=== PATIENT | female | born 1960 | race Caucasian/White ===

== ENCOUNTER 2020-09-12 10:26 | Inpatient (IN) | payer BC ==
[2020-09-12] MEDS ORDERED: Dexamethasone 10 MG/ML VIAL ONE (11:06)
[2020-09-12] MEDS ORDERED: Azithromycin 500 MG VIAL ONE (11:06)
[2020-09-12] MEDS ORDERED: Aspirin Chewable 81 MG TAB ONE (11:06)
[2020-09-12] MEDS ORDERED: cefTRIAXone\\ROCEPHIN 2 GM VIAL ONE (11:06)
[2020-09-12 11:11] LABS: #Lymphocytes 1.7 thou/uL (1.20-3.40); #Monocytes 0.7 thou/uL (0.11-0.59); #Neutrophils 6.2 thou/uL (1.40-6.50); %Basophils 0.4 % (0.0-1.0); %Eosinophils 0.2 % (0.0-10.0); %Lymphocytes 19.1 % (21.0-51.0); %Monocytes 8.3 % (0.0-10.0); %Neutrophils 72.1 % (42.0-75.0); Hemoglobin 15.6 g/dL (12.0-16.0); Mean Corpuscular Hemoglobin 29.8 pg (27.0-31.0); Mean Platelet Volume 8.4 fL (7.4-10.4); Platelet Count 180 thou/uL (130-400); RBC Distribution Width 11.4 % (11.5-14.5); Red Blood Cell (RBC) Count 5.25 mill/uL (4.20-5.40); White Blood Cell (WBC) Count 8.7 thou/uL (4.8-10.8)
[2020-09-12] MEDS ORDERED: Iopamidol-370 76% 500 ML 1 ML ONE (11:18)
--- NOTE | 2020-09-12 11:24 | RAD ---
Chest one view HISTORY: Pneumonia. COMPARISON: 11/13/2016. FINDINGS: Cardiac silhouette is magnified by projection. Pulmonary vasculature accentuated by shallow inspiration. Mediastinum is midline. Subtle ill-defined peripheral patchy areas of groundglass opacity involve each lung base. Upper lobes are clear. No lobar consolidation or evidence of pneumothorax. IMPRESSION : Multifocal infiltrate as often seen with COVID pneumonitis.
[2020-09-12 11:34] LABS: Calcium 8.6 mg/dL (7.8-10.44); Chloride 99 mmol/L (98-107); Sodium 139 mmol/L (136-145)
[2020-09-12 11:36] LABS: Glucose 166 mg/dL (70-105)
[2020-09-12 11:37] LABS: Bilirubin, Total 0.6 mg/dL (0.2-1.2); Protein, Total 7.2 g/dL (6.0-8.3)
[2020-09-12 11:38] LABS: Anion Gap 18 mmol/L (10-20); Carbon Dioxide 26 mmol/L (22-29)
[2020-09-12 11:39] LABS: Alkaline Phosphatase 55 U/L (40-110)
[2020-09-12 11:40] LABS: AST (SGOT) 23 U/L (5-34); Calc. Creatinine Clearance 0 mL/min (70-130)
[2020-09-12 11:41] LABS: BUN (Urea Nitrogen) 5 mg/dL (9.8-20.1)
[2020-09-12 11:42] LABS: ALT (SGPT) 15 U/L (8-55)
[2020-09-12 11:56] LABS: Bilirubin Negative (Negative); Blood, Urine Negative (Negative); Clarity Clear (Clear); Glucose, Urine (Dipstick) Normal (Negative); Ketone, Urine 40 mg/dL (Negative); Leukocyte Negative Leu/uL (Negative); Nitrite Negative (Negative); Protein, Urine (Dipstick) 50 mg/dL (Neg-Trace); RBC/HPF 0-3 HPF (0-3); Specific Gravity, Urine 1.026 (1.002-1.036); Urobilinogen 3 mg/dL (Less than 2)
[2020-09-12 11:57] LABS: Bacteria/HPF 1+ HPF (None Seen)
[2020-09-12] MEDS ORDERED: Dextrose 50% Abboject 50 ML SYRINGE SLOW IVP PRN (12:18)
[2020-09-12] MEDS ORDERED: Dextrose 5% in Water 1,000 ML IV PRN (12:18)
[2020-09-12] MEDS ORDERED: Acetaminophen 325 MG TAB PO PRN (12:19)
[2020-09-12] MEDS ORDERED: Calcium Carbonate 500 MG ChewTAB PO PRN (12:19)
[2020-09-12] MEDS ORDERED: Ondansetron ODT 4 MG TAB PO PRN (12:19)
[2020-09-12] MEDS ORDERED: Ondansetron PF 4 MG/2 ML Vial IVP PRN (12:19)
[2020-09-12 12:34] LABS: PTT 32.7 sec (22.9-36.1)
[2020-09-12 12:35] LABS: D-Dimer Test 0.32 *mcg/mL (0.27-0.43)
[2020-09-12 12:39] LABS: Albumin 3.5 g/dL (3.5-5.0); Globulin 3.7 g/dL (2.4-3.5)
[2020-09-12] MEDS ORDERED: Polyethylene Glycol 3350 17 GM Packet PO PRN (12:42)
[2020-09-12 12:48] LABS: Phosphorus 2.7 mg/dL (2.3-4.7)
--- NOTE | 2020-09-12 12:57 | PDOC.HHP ---
Hospitalist HPI - History of Present Illness Shortness of breath of 2 weeks duration History of Present Illness: Ms. Mccormick is a 59-year-old female with hypertension, diabetes mellitus type 2 and seasonal allergies presented to the emergency room with above complaints. Over the last 2 weeks patient developed gradual worsening shortness of breath along with low-grade fever, some some chest pressure, generalized weakness and coughing. The cough was mildly productive with thick whitish phlegm. She was short of breath on minimal exertion. At times she was short of breath at rest. She has been monitoring her pulse ox on the daily basis. Earlier today her pulse ox was in the 80s for which she decided to come to the emergency room. Over the last 3 days she also has some nausea with on and off mild diarrhea. She had fever over 101 F with intermittent chills. She cannot recall any sick contacts. No recent immobilization, travel, chest pain, palpitations or syncope reported. She was diagnosed with Covid-19 11 days ago. In the emergency room her initial vital signs showed temperature 101.1 with respiration of 23, pulse rate of 98 and blood pressure of 127/67. Her O2 saturation was 90% on room air. She was started on supplemental oxygen. She received ceftriaxone, dexamethasone, azithromycin, aspirin with IV fluid in the emergency room. PAST MEDICAL HISTORY: Hypertension, hyperlipidemia, diabetes mellitus type 2, osteoporosis, seasonal allergies PAST SURGICAL HISTORY: Right knee replacement, right foot surgery, cholecystectomy, hysterectomy, ALLERGIES: No known drug allergies SOCIAL HISTORY: Currently lives at home with her who is the primary decision maker ([phone]). She denies any smoking, alcohol or drug use. FAMILY HISTORY: Mother had ovarian cancer. Father with hypertension and heart disease. Hospitalist ROS - Review of Systems Constitutional: reports: fever, chills, weakness. denies: sweats, malaise, other Cardiovascular: denies: chest pain, palpitations, orthopnea, paroxysmal noc. dyspnea, edema, light headedness, other Genitourinary: denies: dysuria, frequency, incontinence, hematuria, retention, other All other systems reviewed; all pertinent +/- noted in HPI/Subj - Medication Medications: Medication Instructions Recorded Confirmed Type Acetaminophen [Tylenol Extra 1,000 mg PO DAILY 09/12/20 09/12/20 History Strength] Amlodipine [Norvasc] 10 mg PO DAILY 09/12/20 09/12/20 History Cholecalciferol (Vitamin D3) 1 cap PO DAILY 09/12/20 09/12/20 History [Vitamin D3] Irbesartan [Avapro] 150 mg PO DAILY 09/12/20 09/12/20 History Montelukast Sodium [Singulair] 10 mg PO DAILY 09/12/20 09/12/20 History Nystatin [Nystatin Ointment] 1 applic TOP BID PRN 09/12/20 09/12/20 History Pantoprazole [Protonix] 40 mg PO HS 09/12/20 09/12/20 History Raloxifene HCl [Evista] 60 mg PO HS 09/12/20 09/12/20 History Rosuvastatin [Crestor] 20 mg PO DAILY 09/12/20 09/12/20 History Vit C/E/Zn/Coppr/Lutein/Zeaxan 1 capsule PO BID 09/12/20 09/12/20 History [PreserVision Areds 2 Softgel] metFORMIN [Glucophage] 500 mg PO BID-WM 09/12/20 09/12/20 History - Exam General Appearance: ill appearing General - other findings: In mild respiratory distress Eye: PERRL, anicteric sclera ENT: normocephalic atraumatic, no oropharyngeal lesions, moist mucosa Neck: supple, symmetric, no JVD, no thyromegaly Heart: RRR, no gallops, no rubs, normal peripheral pulses Respiratory: no wheezes, rales, rhonchi, tachypneic Gastrointestinal: soft, non-distended, normal bowel sounds, no guarding, no rigidity Extremities: no cyanosis, no clubbing Skin: normal turgor, no lesions Neurological: cranial nerve grossly intact, normal sensation to touch, no weakness, no focal deficits Musculoskeletal: normal tone, normal strength, no muscle wasting Psychiatric: normal affect, A&O x 3 Hospitalist Results - Labs Result Diagrams: 09/12/20 10:57 09/12/20 10:57 Lab results: WBC 8.7 thou/uL (4.8-10.8) 09/12/20 10:57 Hgb 15.6 g/dL (12.0-16.0) 09/12/20 10:57 Hct 47.3 % (36.0-47.0) H 09/12/20 10:57 MCV 90.0 fL (78.0-98.0) 09/12/20 10:57 Plt Count 180 thou/uL (130-400) 09/12/20 10:57 Neutrophils % 72.1 % (42.0-75.0) 09/12/20 10:57 Sodium 139 mmol/L (136-145) 09/12/20 10:57 Potassium 4.0 mmol/L (3.5-5.1) 09/12/20 10:57 Chloride 99 mmol/L (98-107) 09/12/20 10:57 Carbon Dioxide 26 mmol/L (22-29) 09/12/20 10:57 BUN 5 mg/dL (9.8-20.1) L 09/12/20 10:57 Creatinine 0.72 mg/dL (0.6-1.1) 09/12/20 10:57 Glucose 166 mg/dL (70-105) H 09/12/20 10:57 Lactic Acid 2.2 mmol/L (0.5-2.2) 09/12/20 10:57 Calcium 8.6 mg/dL (7.8-10.44) 09/12/20 10:57 Total Bilirubin 0.6 mg/dL (0.2-1.2) 09/12/20 10:57 AST 23 U/L (5-34) 09/12/20 10:57 ALT 15 U/L (8-55) 09/12/20 10:57 Alkaline Phosphatase 55 U/L (40-110) 09/12/20 10:57 Troponin I Less than 0.010 ng/mL (< 0.028) 09/12/20 10:57 C-Reactive Protein 4.17 mg/dL (= or < 0.5) H 09/12/20 10:57 Serum Total Protein 7.2 g/dL (6.0-8.3) 09/12/20 10:57 Albumin 3.5 g/dL (3.5-5.0) 09/12/20 10:57 Urine Ketones 40 mg/dL (Negative) A 09/12/20 10:40 Urine Blood Negative (Negative) 09/12/20 10:40 Urine Nitrite Negative (Negative) 09/12/20 10:40 Ur Leukocyte Esterase Negative Bev/uL (Negative) 09/12/20 10:40 Urine RBC 0-3 HPF (0-3) 09/12/20 10:40 Urine WBC 11-20 HPF (0-3) A 09/12/20 10:40 Ur Squamous Epith Cells 4-6 HPF (0-3) A 09/12/20 10:40 Urine Bacteria 1+ HPF (None Seen) A 09/12/20 10:40 - EKG Interpretation EKG: Sinus rhythm with left ventricular hypertrophy and left anterior fascicular blockReviewed by me - Radiology Interpretation Chest x-ray Status: image reviewed by me Additional Comment: Multifocal pneumonia consistent with COVID-19 Hospitalist H&P A/P - Plan Plan: Acute hypoxic respiratory failure due to COVID-19 pneumonia Suspected UTI Atypical chest pain with abnormal EKG Diabetes mellitus type 2 Hypertension Hyperlipidemia Seasonal allergies Dehydration Elevated inflammatory markers CKD stage II Morbid obesity with a BMI 41.5 Plan: Patient will be monitored in the telemetry unit. Serial troponins have been ordered. O2 supplementation. Dexamethasone 6 mg daily. I discussed with infectious disease Dr. Montoya who recommended remdesivir. Insulin sliding scale. Patient received IV fluids in the emergency room. Diabetic diet. Vitals every 4 hourly. Monitor pulse ox closely. Monitor inflammatory markers on the daily basis. Empiric ceftriaxone for UTI. Urine cultures have been sent. Plan of care was discussed with the patient and the who stated understanding. Patient will require greater than 3 to 4 days for stabilization.
--- NOTE | 2020-09-12 13:08 | CT ---
EXAM: CT pulmonary angiogram with IV contrast and three-dimensional reconstructions PROVIDED CLINICAL HISTORY: Cough COMPARISON: None FINDINGS: There is no evidence for central or segmental pulmonary embolus. Vascular calcification including cor onary calcium is demonstrated. The heart, pericardium and great vessels appear otherwise unremarkable. There is no evidence for thoracic lymph node enlargement. The airway appears patent and of normal jose iber. No pleural fluid or pneumothorax apparent. There are patchy areas of groundglass opacity and associated interstitial thickening involving the kenia ng parenchyma bilaterally. The visualized portions of the upper abdomen demonstrate no acute abnormality. Fatty infiltration of the liver and post cholecystectomy change are seen. The osseous structures demonstrate no concerning lytic or blastic lesions. IMPRESSION: 1. No evidence for central or segmental pulmonary embolus. 2. Pulmonary parenchymal findings typical but not specific for Covid pneumonia.
[2020-09-12 13:23] LABS: Troponin I Less than 0.010 ng/mL (< 0.028)
[2020-09-12 15:00] LABS: Lactic Acid 1.6 mmol/L (0.5-2.2)
[2020-09-12] MEDS ORDERED: Albuterol 200 PUFF (6.7GM INHALER) INH PRN (15:45)
[2020-09-12 16:49] LABS: Troponin I Less than 0.010 ng/mL (< 0.028)
[2020-09-12 17:52] VITALS: BMI 41.5
[2020-09-12] MEDS ORDERED: REMDESIVIR (EUA) 200 MG in Sodium Chloride 0.9% 250 ML 210 ML IV SCH (18:00)
[2020-09-12] MEDS: Insulin Regular 300 UNITS/3 ML VIAL SC PRN (18:20)
[2020-09-12] MEDS ORDERED: Nystatin Ointment 15 GM TUBE TOP PRN (19:36)
[2020-09-12] MEDS: Senokot S 8.6-50 MG TAB PO SCH (19:53)
[2020-09-12] MEDS: Enoxaparin Sodium 40 MG/0.4 ML SYRINGE SC SCH (19:53)
[2020-09-12] MEDS ORDERED: Famotidine 20 MG TAB PO SCH (21:00)
[2020-09-12] MEDS: Albuterol 200 PUFF (6.7GM INHALER) INH SCH ×2 (22:11→22:12)
[2020-09-13] MEDS: Albuterol 200 PUFF (6.7GM INHALER) INH SCH ×6 (02:58→22:54)
[2020-09-13 05:15] LABS: #Monocytes 0.5 thou/uL (0.11-0.59); #Neutrophils 3.5 thou/uL (1.40-6.50); %Lymphocytes 20.4 % (21.0-51.0); %Monocytes 10.3 % (0.0-10.0); %Neutrophils 69.2 % (42.0-75.0); Hemoglobin 13.1 g/dL (12.0-16.0); Mean Corpuscular HGB CONC 32.4 g/dL (32.0-36.0); Mean Corpuscular Hemoglobin 28.9 pg (27.0-31.0); Mean Corpuscular Volume 89.3 fL (78.0-98.0); Mean Platelet Volume 8.2 fL (7.4-10.4); Platelet Count 205 thou/uL (130-400); RBC Distribution Width 11.1 % (11.5-14.5); Red Blood Cell (RBC) Count 4.52 mill/uL (4.20-5.40)
[2020-09-13 06:07] LABS: ALT (SGPT) 11 U/L (8-55); AST (SGOT) 16 U/L (5-34); Albumin 2.9 g/dL (3.5-5.0); Alkaline Phosphatase 42 U/L (40-110); Anion Gap 14 mmol/L (10-20); BUN (Urea Nitrogen) 6 mg/dL (9.8-20.1); Bilirubin, Total 0.3 mg/dL (0.2-1.2); Calc. Creatinine Clearance 147 mL/min (70-130); Calcium 8.1 mg/dL (7.8-10.44); Carbon Dioxide 27 mmol/L (22-29); Chloride 104 mmol/L (98-107); Globulin 3.2 g/dL (2.4-3.5); Glucose 147 mg/dL (70-105); Magnesium 2.2 mg/dL (1.6-2.6); Phosphorus 2.7 mg/dL (2.3-4.7); Potassium 3.5 mmol/L (3.5-5.1); Protein, Total 6.1 g/dL (6.0-8.3); Sodium 141 mmol/L (136-145)
[2020-09-13] MEDS ORDERED: Amlodipine 10 MG TAB PO SCH (09:00)
[2020-09-13] MEDS: Cholecalciferol 1,000 UNITS (25 MCG) TAB PO SCH (09:23)
[2020-09-13] MEDS: Enoxaparin Sodium 40 MG/0.4 ML SYRINGE SC SCH ×2 (09:24→20:14)
[2020-09-13] MEDS: Losartan 25 MG TAB PO SCH (09:24)
[2020-09-13] MEDS: Dexamethasone 4 mg/ml Vial SLOW IVP SCH (09:25)
[2020-09-13] MEDS: Benzonatate 100 MG CAP PO PRN ×2 (09:25→18:24)
[2020-09-13] MEDS: Multivit, Therapeutic 1 TAB PO SCH (09:25)
[2020-09-13] MEDS: Montelukast Sodium 10 mg Tablet PO SCH (09:25)
[2020-09-13] MEDS: Rosuvastatin 20 MG TAB PO SCH (09:25)
[2020-09-13] MEDS ORDERED: Insulin Glargine 15 UNITS in Pre-Filled Syringe 1 EACH SC SCH (12:00)
[2020-09-13] MEDS: Insulin Regular 300 UNITS/3 ML VIAL SC PRN ×3 (12:25→20:38)
[2020-09-13] MEDS: cefTRIAXone\\ROCEPHIN 1 GM in Sodium Chloride 0.9% 100 ML IVPB SCH (12:26)
[2020-09-13] MEDS: Senokot S 8.6-50 MG TAB PO SCH ×2 (12:52→20:14)
--- NOTE | 2020-09-13 13:48 | PDOC.HOSPP ---
- Subjective Encounter Date: 09/13/20 Encounter Time: 13:30 Subjective: Patient seen and examined for respiratory failure due to COVID-19 pneumonia. Shortness of breath slightly better. Some cough with minimal production. Denies any chest pain, palpitations, nausea, vomiting or diarrhea. - Objective Vital Signs & Weight: Vital Signs (12 hours) Temp Pulse Resp BP Pulse Ox 09/13/20 11:50 99.1 F 83 18 119/63 97 09/13/20 07:39 98.6 F 78 20 127/68 96 09/13/20 02:56 98.7 F 74 18 104/59 L 98 Weight Weight 219 lb 9.6 oz I&O: 09/12/20 09/13/20 09/14/20 06:59 06:59 06:59 Intake Total 470 Output Total 550 650 Balance -80 -650 Result Diagrams: 09/13/20 04:49 09/13/20 04:49 Additional Labs: Accuchecks 09/13/20 09/12/20 09/12/20 10:57 21:36 17:39 POC Glucose 242 H 264 H 209 H Abnormal Lab Results - Last 48 hrs 09/12/20 10:40: Urine Protein 50 A, Urine Ketones 40 A, Urine Urobilinogen 3 A, Urine WBC 11-20 A, Ur Squamous Epith Cells 4-6 A, Urine Bacteria 1+ A, Hyaline Casts 7-10 A 09/12/20 10:57: BUN 5 L, Globulin 3.7 H, Albumin/Globulin Ratio 0.9 L 09/12/20 10:57: Hct 47.3 H, RDW 11.4 L, Lymphocytes % 19.1 L, Monocytes # 0.7 H 09/12/20 10:57: C-Reactive Protein 4.17 H 09/12/20 10:57: Ferritin 1280.32 H 09/13/20 04:49: BUN 6 L, Albumin 2.9 L, Albumin/Globulin Ratio 0.9 L 09/13/20 04:49: RDW 11.1 L, Lymphocytes % 20.4 L, Monocytes % 10.3 H, Lymphocytes # 1.0 L 09/13/20 04:49: C-Reactive Protein 2.18 H 09/13/20 04:50: Ferritin 791.01 H Microbiology - Entire Visit 09/12/20 10:40 Urine voided Urine Culture - Preliminary Gram Negative Chetan 09/12/20 11:03 Venous blood - Right Arm Blood Culture - Preliminary Specimen has been received and culture in progress. No Growth to date. 09/12/20 10:57 Venous blood - Left Arm Blood Culture - Preliminary Specimen has been received and culture in progress. No Growth to date. Radiology Reviewed by me: Yes (Chest x-raymultifocal pneumonia) EKG Reviewed by me: Yes (Sinus rhythm on telemetry) Hospitalist ROS - Review of Systems Cardiovascular: denies: chest pain, palpitations, orthopnea, paroxysmal noc. dyspnea, edema, light headedness, other Gastrointestinal: denies: nausea, vomiting, abdominal pain, diarrhea, constipation, melena, hematochezia, other - Medication Medications: Active Medications Generic Name Dose Route Start Last Admin Trade Name Freq PRN Reason Stop Dose Admin Albuterol Sulfate 2 puff 09/12/20 18:30 09/13/20 09:22 Albuterol 200 Puff (6.7gm Inhaler) INH 2 puff [id number] YUAN Administration Benzonatate 100 mg 09/13/20 08:11 09/13/20 09:25 Benzonatate 100 Mg Cap PO 100 mg TIDPRN PRN Administration Cough Cholecalciferol 5,000 units 09/13/20 09:00 09/13/20 09:23 Cholecalciferol 1,000 Units (25 Mcg) Tab PO 5,000 units DAILY YUAN Administration Dexamethasone 6 mg 09/13/20 09:00 09/13/20 09:25 Dexamethasone 4 Mg/Ml Vial SLOW IVP 6 mg DAILY YUAN Administration Enoxaparin Sodium 40 mg 09/12/20 21:00 09/13/20 09:24 Enoxaparin Sodium 40 Mg/0.4 Ml Syringe SC 40 mg 0900,2100 YUAN Administration Ceftriaxone Sodium 1 gm/ 100 mls @ 200 mls/hr 09/13/20 12:00 09/13/20 12:26 Sodium Chloride IVPB 100 mls Q24HR YUAN Administration Insulin Glargine 15 units/ 0.15 mls @ 0 mls/hr 09/13/20 12:00 09/13/20 12:27 Miscellaneous Medication SC 09/13/20 14:00 0.15 mls NOW YUAN Administration Insulin Human Regular 0 units 09/12/20 12:18 09/13/20 12:25 Insulin Regular 300 Units/3 Ml Vial SC 4 unit .MODERATE SLIDING SC PRN Administration Moderate Correctional Scale Losartan Potassium 50 mg 09/13/20 09:00 09/13/20 09:24 Losartan 25 Mg Tab PO 50 mg DAILY YUAN Administration Montelukast Sodium 10 mg 09/13/20 09:00 09/13/20 09:25 Montelukast Sodium 10 Mg Tablet PO 10 mg DAILY YUAN Administration Multivitamins 1 tab 09/13/20 09:00 09/13/20 09:25 Multivit, Therapeutic 1 Tab PO 1 tab DAILY YUAN Administration Pantoprazole Sodium 40 mg 09/13/20 09:00 09/13/20 09:25 Pantoprazole 40 Mg Tab PO 40 mg DAILY YUAN Administration Rosuvastatin Calcium 20 mg 09/13/20 09:00 09/13/20 09:25 Rosuvastatin 20 Mg Tab PO 20 mg DAILY YUAN Administration Senna/Docusate Sodium 1 tab 09/12/20 21:00 09/13/20 12:52 Senokot S 8.6-50 Mg Tab PO Not Given BID YUAN Sodium Chloride 10 ml 09/12/20 12:19 09/13/20 09:26 Flush - Normal Saline 10 Ml Syringe IVF 10 ml PRN PRN Administration Saline Flush - Exam General Appearance: ill appearing Eye: PERRL, anicteric sclera Heart: RRR, no gallops, no rubs, normal peripheral pulses Respiratory: no wheezes, normal chest expansion, rales, rhonchi Gastrointestinal: soft, non-tender, normal bowel sounds, no guarding, no rigidity Extremities: no cyanosis, no clubbing, no edema Extremities - other findings: No calf tenderness Neurological: no new deficit Psychiatric: normal affect, A&O x 3 Hosp A/P - Plan DVT proph w/lovenox, DVT proph w/SCDs Acute hypoxic respiratory failure due to COVID-19 pneumonia Suspected UTI Atypical chest pain with abnormal EKG Diabetes mellitus type 2 Hypertension Hyperlipidemia Seasonal allergies Dehydration Elevated inflammatory markers CKD stage II Morbid obesity with a BMI 41.5 Plan: Continue dexamethasone 6 mg daily. Continue remdesivirday 2. Change amlodipine to 5 mg twice daily from tomorrow. Continue losartan. Add Lantus for hyperglycemia due to steroids. Continue sliding scale AC and at bedtime. Monitor inflammatory markers closely. Continue other medications as above.
[2020-09-13] MEDS: REMDESIVIR (EUA) 100 MG in Sodium Chloride 0.9% 250 ML 230 ML IV SCH (18:23)
[2020-09-13] MEDS: Diabetic Tussin 200 MG/10 ML UDCUP PO PRN (20:14)
[2020-09-13] MEDS: Zinc Sulfate 220 MG CAP PO SCH (20:14)
[2020-09-14] MEDS: Albuterol 200 PUFF (6.7GM INHALER) INH SCH ×6 (02:21→21:24)
[2020-09-14] MEDS: Diabetic Tussin 200 MG/10 ML UDCUP PO PRN ×4 (02:22→14:42)
[2020-09-14 05:19] LABS: #Lymphocytes 1.6 thou/uL (1.20-3.40); #Monocytes 0.8 thou/uL (0.11-0.59); #Neutrophils 4.3 thou/uL (1.40-6.50); %Basophils 0.1 % (0.0-1.0); %Eosinophils 0.2 % (0.0-10.0); %Monocytes 11.8 % (0.0-10.0); %Neutrophils 63.9 % (42.0-75.0); Hemoglobin 12.9 g/dL (12.0-16.0); Mean Corpuscular HGB CONC 32.3 g/dL (32.0-36.0); Mean Corpuscular Hemoglobin 28.7 pg (27.0-31.0); Mean Platelet Volume 8.2 fL (7.4-10.4); Platelet Count 212 thou/uL (130-400); RBC Distribution Width 11.4 % (11.5-14.5); White Blood Cell (WBC) Count 6.8 thou/uL (4.8-10.8)
[2020-09-14 05:42] LABS: ALT (SGPT) 9 U/L (8-55); AST (SGOT) 13 U/L (5-34); Alkaline Phosphatase 43 U/L (40-110); Anion Gap 13 mmol/L (10-20); BUN (Urea Nitrogen) 9 mg/dL (9.8-20.1); Bilirubin, Total 0.3 mg/dL (0.2-1.2); Calc. Creatinine Clearance 145 mL/min (70-130); Calcium 8.4 mg/dL (7.8-10.44); Carbon Dioxide 28 mmol/L (22-29); Chloride 105 mmol/L (98-107); Globulin 3.2 g/dL (2.4-3.5); Glucose 138 mg/dL (70-105); Potassium 3.9 mmol/L (3.5-5.1); Protein, Total 6.2 g/dL (6.0-8.3); Sodium 142 mmol/L (136-145)
[2020-09-14] MEDS: Cholecalciferol 1,000 UNITS (25 MCG) TAB PO SCH (08:43)
[2020-09-14] MEDS: Ascorbic Acid 500 mg Chewable Tablet PO SCH (08:43)
[2020-09-14] MEDS: Amlodipine 5 MG TAB PO SCH ×3 (08:43→21:00)
[2020-09-14] MEDS: Montelukast Sodium 10 mg Tablet PO SCH (08:44)
[2020-09-14] MEDS: Dexamethasone 4 mg/ml Vial SLOW IVP SCH (08:44)
[2020-09-14] MEDS: Losartan 25 MG TAB PO SCH (08:44)
[2020-09-14] MEDS: Enoxaparin Sodium 40 MG/0.4 ML SYRINGE SC SCH ×2 (08:44→21:00)
[2020-09-14] MEDS: Senokot S 8.6-50 MG TAB PO SCH ×2 (08:45→21:00)
[2020-09-14] MEDS: Rosuvastatin 20 MG TAB PO SCH (08:45)
[2020-09-14] MEDS: Multivit, Therapeutic 1 TAB PO SCH (08:45)
[2020-09-14] MEDS ORDERED: Insulin Glargine 15 UNITS in Pre-Filled Syringe 1 EACH SC SCH (09:00)
--- NOTE | 2020-09-14 10:49 | PDOC.HOSPP ---
- Subjective Encounter Date: 09/14/20 Encounter Time: 10:30 Subjective: Patient seen and examined for respiratory failure/COVID-19 pneumonia. Complains of intractable cough with minimal production. Shortness of breath unchanged. Denies any chest pain, palpitations, nausea, vomiting or diarrhea. - Objective Vital Signs & Weight: Vital Signs (12 hours) Temp Pulse Resp BP Pulse Ox 09/14/20 09:00 98.4 F 83 22 H 111/62 95 09/14/20 02:19 94 L 09/14/20 02:12 97.8 F 78 22 H 123/76 93 L 09/13/20 23:00 98.6 F 78 18 120/71 94 L Weight Weight 219 lb 9.6 oz I&O: 09/13/20 09/14/20 09/15/20 06:59 06:59 06:59 Intake Total 470 3260 240 Output Total 550 3200 Balance -80 60 240 Result Diagrams: 09/14/20 04:37 09/14/20 04:37 Additional Labs: Accuchecks 09/13/20 09/13/20 09/13/20 20:20 16:55 10:57 POC Glucose 310 H 252 H 242 H Abnormal Lab Results - Last 48 hrs 09/12/20 10:40: Urine Protein 50 A, Urine Ketones 40 A, Urine Urobilinogen 3 A, Urine WBC 11-20 A, Ur Squamous Epith Cells 4-6 A, Urine Bacteria 1+ A, Hyaline Casts 7-10 A 09/12/20 10:57: BUN 5 L, Globulin 3.7 H, Albumin/Globulin Ratio 0.9 L 09/12/20 10:57: Hct 47.3 H, RDW 11.4 L, Lymphocytes % 19.1 L, Monocytes # 0.7 H 09/12/20 10:57: C-Reactive Protein 4.17 H 09/12/20 10:57: Ferritin 1280.32 H 09/13/20 04:49: BUN 6 L, Albumin 2.9 L, Albumin/Globulin Ratio 0.9 L 09/13/20 04:49: RDW 11.1 L, Lymphocytes % 20.4 L, Monocytes % 10.3 H, Lymphocytes # 1.0 L 09/13/20 04:49: C-Reactive Protein 2.18 H 09/13/20 04:50: Ferritin 791.01 H 09/14/20 04:37: BUN 9 L, Albumin 3.0 L, Albumin/Globulin Ratio 0.9 L 09/14/20 04:37: RDW 11.4 L, Monocytes % 11.8 H, Monocytes # 0.8 H 09/14/20 04:37: C-Reactive Protein 0.94 H 09/14/20 04:37: Ferritin 580.82 H 09/14/20 04:37: D-Dimer Less than 0.27 L Microbiology - Entire Visit 09/12/20 10:40 Urine voided Urine Culture - Final Escherichia coli 09/12/20 11:03 Venous blood - Right Arm Blood Culture - Preliminary Specimen has been received and culture in progress. No Growth to date. 09/12/20 10:57 Venous blood - Left Arm Blood Culture - Preliminary Specimen has been received and culture in progress. No Growth to date. EKG Reviewed by me: Yes (Sinus rhythm on telemetry) Hospitalist ROS - Review of Systems Respiratory: reports: cough, dry, shortness of breath, SOB with excertion. denies: hemoptysis, pleuritic pain, sputum, wheezing, other Cardiovascular: denies: chest pain, palpitations, orthopnea, paroxysmal noc. dyspnea, edema, light headedness, other Gastrointestinal: denies: nausea, vomiting, abdominal pain, diarrhea, constipation, melena, hematochezia, other - Medication Medications: Active Medications Generic Name Dose Route Start Last Admin Trade Name Freq PRN Reason Stop Dose Admin Albuterol Sulfate 2 puff 09/12/20 18:30 09/14/20 10:07 Albuterol 200 Puff (6.7gm Inhaler) INH 2 puff [id number] YUAN Administration Amlodipine Besylate 5 mg 09/14/20 09:00 09/14/20 09:07 Amlodipine 5 Mg Tab PO Not Given BID YUAN Ascorbic Acid 1,000 mg 09/14/20 09:00 09/14/20 08:43 Ascorbic Acid 500 Mg Chewable Tablet PO 1,000 mg DAILY YUAN Administration Benzonatate 100 mg 09/13/20 08:11 09/13/20 18:24 Benzonatate 100 Mg Cap PO 100 mg TIDPRN PRN Administration Cough Cholecalciferol 5,000 units 09/13/20 09:00 09/14/20 08:43 Cholecalciferol 1,000 Units (25 Mcg) Tab PO 5,000 units DAILY YUAN Administration Dexamethasone 6 mg 09/13/20 09:00 09/14/20 08:44 Dexamethasone 4 Mg/Ml Vial SLOW IVP 6 mg DAILY YUAN Administration Enoxaparin Sodium 40 mg 09/12/20 21:00 09/14/20 08:44 Enoxaparin Sodium 40 Mg/0.4 Ml Syringe SC 40 mg 0900,2100 YUAN Administration Guaifenesin 200 mg 09/13/20 19:50 09/14/20 10:07 Diabetic Tussin 200 Mg/10 Ml Udcup PO 200 mg Q4H PRN Administration Cough Ceftriaxone Sodium 1 gm/ 100 mls @ 200 mls/hr 09/13/20 12:00 09/13/20 12:26 Sodium Chloride IVPB 100 mls Q24HR YUAN Administration Remdesivir 100 mg/ Sodium 250 mls @ 250 mls/hr 09/13/20 18:00 09/13/20 18:23 Chloride IV 09/16/20 18:59 250 mls 1800 YUAN Administration Insulin Glargine 15 units/ 0.15 mls @ 0 mls/hr 09/14/20 09:00 09/14/20 08:47 Miscellaneous Medication SC 0.15 mls QAM YUAN Administration Insulin Human Regular 0 units 09/12/20 12:18 09/13/20 18:23 Insulin Regular 300 Units/3 Ml Vial SC 6 unit .MODERATE SLIDING SC PRN Administration Moderate Correctional Scale Insulin Human Regular 0 units 09/12/20 12:18 09/13/20 20:38 Insulin Regular 300 Units/3 Ml Vial SC 4 unit .BEDTIME SLIDING SC PRN Administration Bedtime Correctional Scale Losartan Potassium 50 mg 09/13/20 09:00 09/14/20 08:44 Losartan 25 Mg Tab PO 50 mg DAILY YUAN Administration Montelukast Sodium 10 mg 09/13/20 09:00 09/14/20 08:44 Montelukast Sodium 10 Mg Tablet PO 10 mg DAILY YUAN Administration Multivitamins 1 tab 09/13/20 09:00 09/14/20 08:45 Multivit, Therapeutic 1 Tab PO 1 tab DAILY YUAN Administration Pantoprazole Sodium 40 mg 09/13/20 09:00 11/27/20 08:45 Pantoprazole 40 Mg Tab PO 40 mg DAILY YUAN Administration Rosuvastatin Calcium 20 mg 09/13/20 09:00 09/14/20 08:45 Rosuvastatin 20 Mg Tab PO 20 mg DAILY YUAN Administration Sodium Chloride 10 ml 09/12/20 12:19 09/14/20 08:45 Flush - Normal Saline 10 Ml Syringe IVF 10 ml PRN PRN Administration Saline Flush Zinc Sulfate 220 mg 09/13/20 21:00 09/13/20 20:14 Zinc Sulfate 220 Mg Cap PO 220 mg HS YUAN Administration - Exam General Appearance: ill appearing Heart: RRR, no gallops Respiratory: no wheezes, rales, rhonchi Gastrointestinal: non-tender, non-distended, normal bowel sounds Extremities: no cyanosis, no clubbing Neurological: no new deficit Musculoskeletal: generalized weakness Psychiatric: normal affect, A&O x 3 Hosp A/P - Plan DVT proph w/SCDs Acute hypoxic respiratory failure due to COVID-19 pneumonia Suspected UTI Atypical chest pain with abnormal EKG Diabetes mellitus type 2 Hypertension Hyperlipidemia Seasonal allergies Dehydration Elevated inflammatory markers CKD stage II Morbid obesity with a BMI 41.5 Plan: Continue remdesivir 3. Continue dexamethasone 3. Continue ceftriaxone for E. coli UTI. Will transfer to medical if needed. Continue sliding scale. Add Robitussin with codeine due to intractable cough. Continue current antihypertensives. Monitor inflammatory markers. Continue other medications as above.
[2020-09-14] MEDS: cefTRIAXone\\ROCEPHIN 1 GM in Sodium Chloride 0.9% 100 ML IVPB SCH (11:26)
[2020-09-14] MEDS: Insulin Regular 300 UNITS/3 ML VIAL SC PRN ×3 (11:27→21:12)
[2020-09-14] MEDS: REMDESIVIR (EUA) 100 MG in Sodium Chloride 0.9% 250 ML 230 ML IV SCH (17:57)
[2020-09-14] MEDS: guaiFENesin ER 600 MG TAB PO SCH (21:00)
[2020-09-14] MEDS: Zinc Sulfate 220 MG CAP PO SCH (21:00)
[2020-09-15] MEDS: Albuterol 200 PUFF (6.7GM INHALER) INH SCH ×6 (00:52→22:19)
[2020-09-15] MEDS: guaiFENesin/Codeine Phosphate 200 mg/20 mg 10 ml UD Cup PO PRN ×2 (04:27→22:12)
[2020-09-15] MEDS: Diabetic Tussin 200 MG/10 ML UDCUP PO PRN ×4 (04:29→20:32)
[2020-09-15] MEDS: Benzonatate 100 MG CAP PO PRN ×2 (04:30→12:02)
[2020-09-15] MEDS ORDERED: Famotidine 20 MG TAB PO SCH ×2 (06:15→21:00)
[2020-09-15] MEDS ORDERED: Simethicone Chewable 80 MG TAB PO SCH (06:15)
[2020-09-15 06:26] LABS: #Lymphocytes 2.3 thou/uL (1.20-3.40); #Monocytes 0.9 thou/uL (0.11-0.59); #Neutrophils 5.8 thou/uL (1.40-6.50); %Eosinophils 0.1 % (0.0-10.0); %Lymphocytes 25.3 % (21.0-51.0); %Monocytes 9.8 % (0.0-10.0); %Neutrophils 64.8 % (42.0-75.0); Mean Corpuscular HGB CONC 32.6 g/dL (32.0-36.0); Mean Corpuscular Hemoglobin 28.5 pg (27.0-31.0); Mean Corpuscular Volume 87.4 fL (78.0-98.0); Mean Platelet Volume 7.5 fL (7.4-10.4); Platelet Count 236 thou/uL (130-400); RBC Distribution Width 11.4 % (11.5-14.5); Red Blood Cell (RBC) Count 4.56 mill/uL (4.20-5.40); White Blood Cell (WBC) Count 8.9 thou/uL (4.8-10.8)
[2020-09-15 06:53] LABS: ALT (SGPT) 29 U/L (8-55); AST (SGOT) 70 U/L (5-34); Albumin 3.1 g/dL (3.5-5.0); Alkaline Phosphatase 59 U/L (40-110); Anion Gap 16 mmol/L (10-20); BUN (Urea Nitrogen) 9 mg/dL (9.8-20.1); Bilirubin, Total 0.5 mg/dL (0.2-1.2); Calc. Creatinine Clearance 138 mL/min (70-130); Calcium 8.5 mg/dL (7.8-10.44); Carbon Dioxide 25 mmol/L (22-29); Chloride 104 mmol/L (98-107); Globulin 3.1 g/dL (2.4-3.5); Glucose 149 mg/dL (70-105); Potassium 3.2 mmol/L (3.5-5.1); Protein, Total 6.2 g/dL (6.0-8.3); Sodium 142 mmol/L (136-145)
[2020-09-15] MEDS ORDERED: metFORMIN 500 MG TAB PO SCH (08:00)
[2020-09-15] MEDS ORDERED: Calcium Carbonate 500 MG ChewTAB PO PRN (09:10)
[2020-09-15] MEDS ORDERED: Mag-Al 1200 mg/1200 mg/30 ML UDCUP PO PRN (09:10)
[2020-09-15] MEDS: Montelukast Sodium 10 mg Tablet PO SCH (09:15)
[2020-09-15] MEDS: Amlodipine 5 MG TAB PO SCH ×2 (09:15→20:27)
[2020-09-15] MEDS: Dexamethasone 4 mg/ml Vial SLOW IVP SCH (09:15)
[2020-09-15] MEDS: Rosuvastatin 20 MG TAB PO SCH (09:15)
[2020-09-15] MEDS: Multivit, Therapeutic 1 TAB PO SCH (09:15)
[2020-09-15] MEDS: Ascorbic Acid 500 mg Chewable Tablet PO SCH (09:15)
[2020-09-15] MEDS: Losartan 25 MG TAB PO SCH (09:15)
[2020-09-15] MEDS: guaiFENesin ER 600 MG TAB PO SCH ×2 (09:15→20:27)
[2020-09-15] MEDS: Enoxaparin Sodium 40 MG/0.4 ML SYRINGE SC SCH ×2 (09:16→20:27)
[2020-09-15] MEDS: Insulin Glargine 20 UNITS in Pre-Filled Syringe 1 EACH SC SCH (09:17)
[2020-09-15] MEDS: Cholecalciferol 1,000 UNITS (25 MCG) TAB PO SCH (09:20)
[2020-09-15] MEDS ORDERED: Simethicone Chewable 80 MG TAB PO PRN (11:32)
[2020-09-15] MEDS: cefTRIAXone\\ROCEPHIN 1 GM in Sodium Chloride 0.9% 100 ML IVPB SCH (12:02)
--- NOTE | 2020-09-15 12:40 | PDOC.HOSPP ---
- Subjective Encounter Date: 09/15/20 Encounter Time: 11:45 Subjective: Patient seen and examined for COVID-19 pneumonia with respiratory failure. Cough improving. Still short of breath on minimal exertion. Feels generally weak and fatigue. Had some heartburn last night that has improved - Objective Vital Signs & Weight: Vital Signs (12 hours) Temp Pulse Resp BP Pulse Ox 09/15/20 11:11 98.3 F 69 20 122/78 95 09/15/20 09:10 98 F 74 20 123/80 94 L 09/15/20 07:59 98.2 F 69 20 119/75 95 09/15/20 05:50 98 F 71 22 H 115/71 95 Weight Admit Weight 219 lb 9.6 oz Weight 219 lb 9.6 oz I&O: 09/14/20 09/15/20 09/16/20 06:59 06:59 06:59 Intake Total 3260 2330 Output Total 3200 900 Balance 60 1430 Result Diagrams: 09/15/20 06:13 09/15/20 06:13 Additional Labs: Accuchecks 09/15/20 09/15/20 09/14/20 10:55 04:37 21:09 POC Glucose 132 H 112 H 234 H 09/14/20 18:07 POC Glucose 232 H Abnormal Lab Results - Last 48 hrs 09/14/20 04:37: BUN 9 L, Albumin 3.0 L, Albumin/Globulin Ratio 0.9 L 09/14/20 04:37: RDW 11.4 L, Monocytes % 11.8 H, Monocytes # 0.8 H 09/14/20 04:37: C-Reactive Protein 0.94 H 09/14/20 04:37: Ferritin 580.82 H 09/14/20 04:37: D-Dimer Less than 0.27 L 09/15/20 06:13: Potassium 3.2 L, BUN 9 L, AST 70 H, Albumin 3.1 L, Albumin/Globulin Ratio 1.0 L 09/15/20 06:13: RDW 11.4 L, Monocytes # 0.9 H Microbiology - Entire Visit 09/12/20 11:03 Venous blood - Right Arm Blood Culture - Preliminary NO GROWTH AT 48 HOURS 09/12/20 10:57 Venous blood - Left Arm Blood Culture - Preliminary NO GROWTH AT 48 HOURS 09/12/20 10:40 Urine voided Urine Culture - Final Escherichia coli Radiology Reviewed by me: Yes (CT chestCOVID-19 pneumonia) Hospitalist ROS - Review of Systems Constitutional: reports: weakness, malaise Cardiovascular: denies: chest pain, palpitations, orthopnea, paroxysmal noc. dyspnea, edema, light headedness, other Gastrointestinal: reports: other (Heartburn). denies: nausea, vomiting, abdominal pain, diarrhea, constipation, melena, hematochezia - Medication Medications: Active Medications Generic Name Dose Route Start Last Admin Trade Name Freq PRN Reason Stop Dose Admin Albuterol Sulfate 2 puff 09/12/20 18:30 09/15/20 09:30 Albuterol 200 Puff (6.7gm Inhaler) INH 2 puff [id number] YUAN Administration Amlodipine Besylate 5 mg 09/14/20 09:00 09/15/20 09:15 Amlodipine 5 Mg Tab PO 5 mg BID YUAN Administration Ascorbic Acid 1,000 mg 09/14/20 09:00 09/15/20 09:15 Ascorbic Acid 500 Mg Chewable Tablet PO 1,000 mg DAILY YUAN Administration Benzonatate 100 mg 09/13/20 08:11 09/15/20 12:02 Benzonatate 100 Mg Cap PO 100 mg TIDPRN PRN Administration Cough Cholecalciferol 5,000 units 09/13/20 09:00 09/15/20 09:20 Cholecalciferol 1,000 Units (25 Mcg) Tab PO 5,000 units DAILY YUAN Administration Dexamethasone 6 mg 09/13/20 09:00 09/15/20 09:15 Dexamethasone 4 Mg/Ml Vial SLOW IVP 6 mg DAILY YUAN Administration Enoxaparin Sodium 40 mg 09/12/20 21:00 09/15/20 09:16 Enoxaparin Sodium 40 Mg/0.4 Ml Syringe SC 40 mg 0900,2100 YUAN Administration Guaifenesin 200 mg 09/13/20 19:50 09/15/20 12:01 Diabetic Tussin 200 Mg/10 Ml Udcup PO 200 mg Q4H PRN Administration Cough Guaifenesin 600 mg 09/14/20 21:00 09/15/20 09:15 Guaifenesin Er 600 Mg Tab PO 600 mg Q12HR YUAN Administration Guaifenesin/Codeine Phosphate 5 ml 09/14/20 10:39 09/15/20 04:27 Guaifenesin/Codeine Phosphate 200 Mg/20 Mg 10 Ml Ud Cup PO 5 ml Q6H PRN Administration Cough Ceftriaxone Sodium 1 gm/ 100 mls @ 200 mls/hr 09/13/20 12:00 09/15/20 12:02 Sodium Chloride IVPB 100 mls Q24HR YUAN Administration Remdesivir 100 mg/ Sodium 250 mls @ 250 mls/hr 09/13/20 18:00 09/14/20 17:57 Chloride IV 09/16/20 18:59 250 mls 1800 YUAN Administration Insulin Glargine 20 units/ 0.2 mls @ 0 mls/hr 09/15/20 09:00 09/15/20 09:17 Miscellaneous Medication SC 0.2 mls QAM YUAN Administration Insulin Human Regular 0 units 09/12/20 12:18 09/14/20 18:08 Insulin Regular 300 Units/3 Ml Vial SC 4 unit .MODERATE SLIDING SC PRN Administration Moderate Correctional Scale Insulin Human Regular 0 units 09/12/20 12:18 09/14/20 21:12 Insulin Regular 300 Units/3 Ml Vial SC 2 unit .BEDTIME SLIDING SC PRN Administration Bedtime Correctional Scale Losartan Potassium 50 mg 09/13/20 09:00 09/15/20 09:15 Losartan 25 Mg Tab PO 50 mg DAILY YUAN Administration Montelukast Sodium 10 mg 09/13/20 09:00 09/15/20 09:15 Montelukast Sodium 10 Mg Tablet PO 10 mg DAILY YUAN Administration Multivitamins 1 tab 09/13/20 09:00 09/15/20 09:15 Multivit, Therapeutic 1 Tab PO 1 tab DAILY YUAN Administration Pantoprazole Sodium 40 mg 09/15/20 21:00 09/15/20 09:28 Pantoprazole 40 Mg Tab PO 40 mg BID YUAN Administration Rosuvastatin Calcium 20 mg 09/13/20 09:00 09/15/20 09:15 Rosuvastatin 20 Mg Tab PO 20 mg DAILY YUAN Administration Senna/Docusate Sodium 1 tab 09/14/20 21:00 09/14/20 21:00 Senokot S 8.6-50 Mg Tab PO 1 tab HS YUAN Administration Sodium Chloride 10 ml 09/12/20 12:19 09/15/20 09:17 Flush - Normal Saline 10 Ml Syringe IVF 10 ml PRN PRN Administration Saline Flush Zinc Sulfate 220 mg 09/13/20 21:00 09/14/20 21:00 Zinc Sulfate 220 Mg Cap PO 220 mg HS YUAN Administration - Exam General Appearance: ill appearing Heart: RRR, no gallops Respiratory: no wheezes, rales, rhonchi Gastrointestinal: non-tender, normal bowel sounds Extremities: no cyanosis, no clubbing Neurological: no new deficit Psychiatric: normal affect, A&O x 3 Hosp A/P - Plan DVT proph w/lovenox, DVT proph w/SCDs Acute hypoxic respiratory failure due to COVID-19 pneumonia E. coli UTI Atypical chest pain with abnormal EKG Diabetes mellitus type 2 Hypertension Hyperlipidemia Seasonal allergies Dehydration Elevated inflammatory markers CKD stage II Morbid obesity with a BMI 41.5 Plan: Continue remdesivir with dexamethasoneday 4. Continue symptomatic treatment. Change ceftriaxone to oral. Increase PPIs to twice daily. Add Tums and Maalox due to persistent GERD symptoms. Continue Lovenox for DVT prophylaxis. Continue amlodipine, Singulair, Crestor and other medications as above.
[2020-09-15] MEDS: metFORMIN 500 MG TAB PO SCH (16:01)
[2020-09-15] MEDS: Insulin Regular 300 UNITS/3 ML VIAL SC PRN ×2 (16:23→20:38)
[2020-09-15] MEDS: REMDESIVIR (EUA) 100 MG in Sodium Chloride 0.9% 250 ML 230 ML IV SCH (17:32)
[2020-09-15] MEDS ORDERED: Potassium Chloride 20 MEQ TAB PO SCH ×2 (18:30→20:00)
[2020-09-15] MEDS: Zinc Sulfate 220 MG CAP PO SCH (20:27)
[2020-09-15] MEDS: Senokot S 8.6-50 MG TAB PO SCH ×2 (20:27→21:00)
[2020-09-16] MEDS: Benzonatate 100 MG CAP PO PRN ×2 (03:14→21:34)
[2020-09-16] MEDS: Albuterol 200 PUFF (6.7GM INHALER) INH SCH ×6 (03:15→21:34)
[2020-09-16] MEDS: Diabetic Tussin 200 MG/10 ML UDCUP PO PRN (05:07)
[2020-09-16] MEDS ORDERED: Potassium Chloride 20 MEQ TAB PO SCH ×2 (08:00→17:00)
[2020-09-16] MEDS: Cholecalciferol 1,000 UNITS (25 MCG) TAB PO SCH (09:01)
[2020-09-16] MEDS: Dexamethasone 4 mg/ml Vial SLOW IVP SCH (09:01)
[2020-09-16] MEDS: Amlodipine 5 MG TAB PO SCH ×2 (09:01→21:34)
[2020-09-16] MEDS: Rosuvastatin 20 MG TAB PO SCH (09:01)
[2020-09-16] MEDS: Multivit, Therapeutic 1 TAB PO SCH (09:01)
[2020-09-16] MEDS: guaiFENesin ER 600 MG TAB PO SCH ×2 (09:01→21:34)
[2020-09-16] MEDS: Montelukast Sodium 10 mg Tablet PO SCH (09:02)
[2020-09-16] MEDS: metFORMIN 500 MG TAB PO SCH ×2 (09:02→17:35)
[2020-09-16] MEDS: Losartan 25 MG TAB PO SCH (09:02)
[2020-09-16] MEDS: Ascorbic Acid 500 mg Chewable Tablet PO SCH (09:02)
[2020-09-16] MEDS: Enoxaparin Sodium 40 MG/0.4 ML SYRINGE SC SCH ×2 (09:02→21:34)
[2020-09-16] MEDS: Insulin Glargine 20 UNITS in Pre-Filled Syringe 1 EACH SC SCH (09:09)
[2020-09-16 09:15] LABS: #Lymphocytes 2.1 thou/uL (1.20-3.40); #Monocytes 0.8 thou/uL (0.11-0.59); %Basophils 0.4 % (0.0-1.0); %Eosinophils 0.1 % (0.0-10.0); %Lymphocytes 22.9 % (21.0-51.0); %Monocytes 8.9 % (0.0-10.0); %Neutrophils 67.7 % (42.0-75.0); Hemoglobin 13.2 g/dL (12.0-16.0); Mean Corpuscular HGB CONC 32.9 g/dL (32.0-36.0); Mean Corpuscular Hemoglobin 28.9 pg (27.0-31.0); Mean Corpuscular Volume 87.8 fL (78.0-98.0); Mean Platelet Volume 7.8 fL (7.4-10.4); Platelet Count 250 thou/uL (130-400); RBC Distribution Width 11.4 % (11.5-14.5); Red Blood Cell (RBC) Count 4.57 mill/uL (4.20-5.40); White Blood Cell (WBC) Count 8.9 thou/uL (4.8-10.8)
[2020-09-16 09:41] LABS: ALT (SGPT) 61 U/L (8-55); AST (SGOT) 44 U/L (5-34); Albumin 3.1 g/dL (3.5-5.0); Alkaline Phosphatase 79 U/L (40-110); Anion Gap 13 mmol/L (10-20); BUN (Urea Nitrogen) 9 mg/dL (9.8-20.1); Bilirubin, Total 0.5 mg/dL (0.2-1.2); Calc. Creatinine Clearance 157 mL/min (70-130); Calcium 8.4 mg/dL (7.8-10.44); Carbon Dioxide 23 mmol/L (22-29); Chloride 106 mmol/L (98-107); Globulin 3.2 g/dL (2.4-3.5); Glucose 148 mg/dL (70-105); Potassium 3.2 mmol/L (3.5-5.1); Protein, Total 6.3 g/dL (6.0-8.3); Sodium 139 mmol/L (136-145)
[2020-09-16] MEDS: cefTRIAXone\\ROCEPHIN 1 GM in Sodium Chloride 0.9% 100 ML IVPB SCH ×2 (12:25→12:34)
[2020-09-16] MEDS: Insulin Regular 300 UNITS/3 ML VIAL SC PRN ×3 (12:41→21:35)
--- NOTE | 2020-09-16 15:53 | PDOC.HOSPP ---
- Subjective Encounter Date: 09/16/20 Encounter Time: 12:30 Subjective: Patient seen and examined for respiratory failure due to COVID-19 pneumonia. Shortness of breath is slowly improving. Mild cough. Denies any chest pain, shortness of breath or palpitations. No fever or chills reported. - Objective Vital Signs & Weight: Vital Signs (12 hours) Temp Pulse Resp BP Pulse Ox 09/16/20 13:00 98.1 F 79 18 122/78 96 09/16/20 09:00 97.8 F 73 18 121/76 97 Weight Admit Weight 219 lb 9.6 oz Weight 219 lb 9.6 oz I&O: 09/15/20 09/16/20 09/17/20 06:59 06:59 06:59 Intake Total 2330 1340 Output Total 900 Balance 1430 1340 Result Diagrams: 09/16/20 08:47 09/16/20 08:47 Additional Labs: Accuchecks 09/16/20 09/16/20 09/15/20 12:40 05:10 20:38 POC Glucose 173 H 146 H 266 H 09/15/20 16:09 POC Glucose 308 H Radiology Reviewed by me: Yes (CTAnegative for PE, bilateral pneumonia) Hospitalist ROS - Review of Systems Cardiovascular: denies: chest pain, palpitations, orthopnea, paroxysmal noc. dyspnea, edema, light headedness, other Gastrointestinal: denies: nausea, vomiting, abdominal pain, diarrhea, constipation, melena, hematochezia, other - Medication Medications: Active Medications Generic Name Dose Route Start Last Admin Trade Name Freq PRN Reason Stop Dose Admin Albuterol Sulfate 2 puff 09/12/20 18:30 09/16/20 10:30 Albuterol 200 Puff (6.7gm Inhaler) INH 2 puff [id number] YUAN Administration Amlodipine Besylate 5 mg 09/14/20 09:00 09/16/20 09:01 Amlodipine 5 Mg Tab PO 5 mg BID YUAN Administration Ascorbic Acid 1,000 mg 09/14/20 09:00 09/16/20 09:02 Ascorbic Acid 500 Mg Chewable Tablet PO 1,000 mg DAILY YUAN Administration Benzonatate 100 mg 09/13/20 08:11 09/16/20 03:14 Benzonatate 100 Mg Cap PO 100 mg TIDPRN PRN Administration Cough Cholecalciferol 5,000 units 09/13/20 09:00 09/16/20 09:01 Cholecalciferol 1,000 Units (25 Mcg) Tab PO 5,000 units DAILY YUAN Administration Dexamethasone 6 mg 09/13/20 09:00 09/16/20 09:01 Dexamethasone 4 Mg/Ml Vial SLOW IVP 6 mg DAILY YUAN Administration Enoxaparin Sodium 40 mg 09/12/20 21:00 09/16/20 09:02 Enoxaparin Sodium 40 Mg/0.4 Ml Syringe SC 40 mg 09,2099 YUAN Administration Guaifenesin 200 mg 09/13/20 19:50 09/16/20 05:07 Diabetic Tussin 200 Mg/10 Ml Udcup PO 200 mg Q4H PRN Administration Cough Guaifenesin 600 mg 09/14/20 21:00 09/16/20 09:01 Guaifenesin Er 600 Mg Tab PO 600 mg Q12HR YUAN Administration Guaifenesin/Codeine Phosphate 5 ml 09/14/20 10:39 09/15/20 22:12 Guaifenesin/Codeine Phosphate 200 Mg/20 Mg 10 Ml Ud Cup PO 5 ml Q6H PRN Administration Cough Ceftriaxone Sodium 1 gm/ 100 mls @ 200 mls/hr 09/13/20 12:00 09/16/20 12:34 Sodium Chloride IVPB Not Given Q24HR YUAN Remdesivir 100 mg/ Sodium 250 mls @ 250 mls/hr 09/13/20 18:00 09/15/20 17:32 Chloride IV 09/16/20 18:59 250 mls 1800 YUAN Administration Insulin Glargine 20 units/ 0.2 mls @ 0 mls/hr 09/15/20 09:00 09/16/20 09:09 Miscellaneous Medication SC 0.2 mls QAM YUAN Administration Insulin Human Regular 0 units 09/12/20 12:18 09/16/20 12:41 Insulin Regular 300 Units/3 Ml Vial SC 2 unit .MODERATE SLIDING SC PRN Administration Moderate Correctional Scale Insulin Human Regular 0 units 09/12/20 12:18 09/15/20 20:38 Insulin Regular 300 Units/3 Ml Vial SC 3 unit .BEDTIME SLIDING SC PRN Administration Bedtime Correctional Scale Losartan Potassium 50 mg 09/13/20 09:00 09/16/20 09:02 Losartan 25 Mg Tab PO 50 mg DAILY YUAN Administration Metformin HCl 500 mg 09/15/20 17:00 09/16/20 09:02 Metformin 500 Mg Tab PO 500 mg BID-WM YUAN Administration Montelukast Sodium 10 mg 09/13/20 09:00 09/16/20 09:02 Montelukast Sodium 10 Mg Tablet PO 10 mg DAILY YUAN Administration Multivitamins 1 tab 09/13/20 09:00 09/16/20 09:01 Multivit, Therapeutic 1 Tab PO 1 tab DAILY YUAN Administration Pantoprazole Sodium 40 mg 09/15/20 21:00 09/16/20 09:02 Pantoprazole 40 Mg Tab PO 40 mg BID YUAN Administration Rosuvastatin Calcium 20 mg 09/13/20 09:00 09/16/20 09:01 Rosuvastatin 20 Mg Tab PO 20 mg DAILY YUAN Administration Senna/Docusate Sodium 1 tab 09/14/20 21:00 09/15/20 21:00 Senokot S 8.6-50 Mg Tab PO Not Given HS YUAN Sodium Chloride 10 ml 09/12/20 12:19 09/15/20 09:17 Flush - Normal Saline 10 Ml Syringe IVF 10 ml PRN PRN Administration Saline Flush Zinc Sulfate 220 mg 09/13/20 21:00 09/15/20 20:27 Zinc Sulfate 220 Mg Cap PO 220 mg HS YUAN Administration - Exam General Appearance: NAD Neck: supple, no JVD Heart: RRR, no gallops Respiratory: no wheezes, rales, rhonchi Gastrointestinal: non-tender, normal bowel sounds Extremities: no cyanosis Neurological: no new deficit Hosp A/P - Plan DVT proph w/lovenox, DVT proph w/SCDs Acute hypoxic respiratory failure due to COVID-19 pneumonia E. coli UTI Atypical chest pain with abnormal EKG Diabetes mellitus type 2 Hypertension Hypokalemia Hyperlipidemia Seasonal allergies Dehydration Elevated inflammatory markers CKD stage II Morbid obesity with a BMI 41.5 Plan: Continue COVID-19 isolation. Will replace potassium. Continue remdesivir and dexamethasone. Continue albuterol inhalers. Will change ceftriaxone to Omnicef. Continue Lovenox for DVT prophylaxis. Continue Lantus 20 units daily. Continue amlodipine, losartan, Metformin and other medications as above. Replace potassium. Home O2 assessment in a.m. Summary: Patient is a 59-year-old white female with hypertension, diabetes mellitus type 2 and seasonal allergies presented to the emergency room on 09/12 with shortness of breath of 2 weeks duration. She also had a fever over 101 F with intermitte nt chills. She was diagnosed with COVID-19 infection 11 days prior to admission. Please refer to the history and physical by Dr. Harp for further details. Patient was admitted to the hospital with a diagnosis of Covid 19 pneumonia with respiratory failure. She was started on supplemental oxygen. She received dexamethasone along with remdesivir. She was placed on COVID-19 isolation. The case was discussed with infectious disease who agreed with above plan of care. Inflammatory markers are gradually improving. Ferritin on admission was 1280 and at discharge is 578. CRP on admission was 4.17 and at discharge is less than 0.5. Patient was also found to have E. coli urinary tract infection. She was initially placed on ceftriaxone that has been transitioned to Omnicef. She also had some electrolyte abnormalities which has been replaced.
[2020-09-16] MEDS: REMDESIVIR (EUA) 100 MG in Sodium Chloride 0.9% 250 ML 230 ML IV SCH (18:02)
[2020-09-16] MEDS: Zinc Sulfate 220 MG CAP PO SCH (21:34)
[2020-09-16] MEDS: Senokot S 8.6-50 MG TAB PO SCH (21:34)
[2020-09-16] MEDS: Cefdinir 300 MG CAP PO SCH (21:34)
[2020-09-17 06:45] LABS: ALT (SGPT) 55 U/L (8-55); AST (SGOT) 41 U/L (5-34); Albumin 3.2 g/dL (3.5-5.0); Alkaline Phosphatase 74 U/L (40-110); Anion Gap 13 mmol/L (10-20); BUN (Urea Nitrogen) 13 mg/dL (9.8-20.1); Bilirubin, Total 0.4 mg/dL (0.2-1.2); Calc. Creatinine Clearance 133 mL/min (70-130); Calcium 8.6 mg/dL (7.8-10.44); Carbon Dioxide 27 mmol/L (22-29); Chloride 103 mmol/L (98-107); Globulin 3.1 g/dL (2.4-3.5); Glucose 150 mg/dL (70-105); Potassium 4.3 mmol/L (3.5-5.1); Protein, Total 6.3 g/dL (6.0-8.3); Sodium 139 mmol/L (136-145)
[2020-09-17] MEDS: Albuterol 200 PUFF (6.7GM INHALER) INH SCH ×3 (06:45→10:45)
[2020-09-17] MEDS: Multivit, Therapeutic 1 TAB PO SCH (08:51)
[2020-09-17] MEDS: Amlodipine 5 MG TAB PO SCH (08:51)
[2020-09-17] MEDS: Cefdinir 300 MG CAP PO SCH (08:51)
[2020-09-17] MEDS: Montelukast Sodium 10 mg Tablet PO SCH (08:51)
[2020-09-17] MEDS: Rosuvastatin 20 MG TAB PO SCH (08:51)
[2020-09-17] MEDS: metFORMIN 500 MG TAB PO SCH (08:51)
[2020-09-17] MEDS: Losartan 25 MG TAB PO SCH (08:51)
[2020-09-17] MEDS: guaiFENesin ER 600 MG TAB PO SCH (08:51)
[2020-09-17] MEDS: Dexamethasone 4 mg/ml Vial SLOW IVP SCH (08:51)
[2020-09-17] MEDS: Insulin Glargine 20 UNITS in Pre-Filled Syringe 1 EACH SC SCH (08:54)
[2020-09-17] MEDS: Ascorbic Acid 500 mg Chewable Tablet PO SCH (09:01)
[2020-09-17] MEDS: Enoxaparin Sodium 40 MG/0.4 ML SYRINGE SC SCH (09:02)
[2020-09-17] MEDS: Cholecalciferol 1,000 UNITS (25 MCG) TAB PO SCH (10:30)
--- NOTE | 2020-09-17 10:55 | PDOC.DS.DS ---
Provider - Provider Date of Admission: 09/12/20 12:37 Date of Discharge: 09/17/20 Admitting Provider: Mario Harp MD Primary Care Physician: MATT DAVIES MD Course - Hospital Course Hospital Course: Discharge diagnoses: Acute hypoxic respiratory failure due to COVID-19 pneumonia E. coli UTI Atypical chest pain with abnormal EKG Diabetes mellitus type 2 Hypertension Hypokalemia Hyperlipidemia Seasonal allergies Dehydration Elevated inflammatory markers CKD stage II Morbid obesity with a BMI 41.5 Plan: Continue COVID-19 isolation. Will replace potassium. Continue remdesivir and dexamethasone. Continue albuterol inhalers. Will change ceftriaxone to Omnicef. Continue Lovenox for DVT prophylaxis. Continue Lantus 20 units daily. Continue amlodipine, losartan, Metformin and other medications as above. Replace potassium. Home O2 assessment in a.m. Summary: Patient is a 59-year-old white female with hypertension, diabetes mellitus type 2 and seasonal allergies presented to the emergency room on 09/12 with shortness of breath of 2 weeks duration. She also had a fever over 101 F with intermitte nt chills. She was diagnosed with COVID-19 infection 11 days prior to admission. Please refer to the history and physical by Dr. Harp for further details. Patient was admitted to the hospital with a diagnosis of Covid 19 pneumonia with respiratory failure. She was started on supplemental oxygen. She received dexamethasone along with remdesivir. She was placed on COVID-19 isolation. The case was discussed with infectious disease who agreed with above plan of care. Inflammatory markers are gradually improving. Ferritin on admission was 1280 and at discharge is 578. CRP on admission was 4.17 and at discharge is less than 0.5. Patient was also found to have E. coli urinary tract infection. She was initially placed on ceftriaxone that has been transitioned to Omnicef. She also had some electrolyte abnormalities which has been replaced. Patient did not need supplemental oxygen at the time of discharge. Resuscitation Status: 09/12/20 12:19 Resuscitation Status Routine Resuscitation Status: FULL: Full Resuscitation - Labs Lab Results: 09/16/20 08:47 09/17/20 06:00 Abnormal Lab Results - Last 48 hrs 09/16/20 08:47: Potassium 3.2 L, BUN 9 L, AST 44 H, ALT 61 H, Albumin 3.1 L, Albumin/Globulin Ratio 1.0 L 09/16/20 08:47: RDW 11.4 L, Monocytes # 0.8 H 09/16/20 08:47: Ferritin 578.69 H 09/16/20 08:47: D-Dimer Less than 0.27 L 09/17/20 06:00: AST 41 H, Albumin 3.2 L, Albumin/Globulin Ratio 1.0 L Microbiology - Entire Visit 09/12/20 11:03 Venous blood - Right Arm Blood Culture - Preliminary NO GROWTH AT 48 HOURS 09/12/20 10:57 Venous blood - Left Arm Blood Culture - Preliminary NO GROWTH AT 48 HOURS 09/12/20 10:40 Urine voided Urine Culture - Final Escherichia coli - Physical Exam Vitals: Vital Signs (12 hours) Temp Pulse Resp BP Pulse Ox 09/17/20 09:05 97.3 F L 74 14 128/78 98 09/17/20 08:51 68 09/17/20 05:00 97.7 F 68 18 126/74 97 Weight Admit Weight 219 lb 9.6 oz Weight 219 lb 9.6 oz Physical Exam: The patient was seen and examined on the day of discharge. Patient denies chest pain or shortness of breath. Vital signs are stable. S1 and S2 are heard. Lungs are clear to auscultation bilaterally. Problem - Time spent with Patient (mins): 32 Plan - Discharge Medications Prescriptions: Cefdinir 300 mg PO Q12HR #10 capsule Dexamethasone 6 mg PO DAILY #4 tablet Ascorbic Acid [Vitamin C] 1,000 mg PO DAILY #4 tablet Zinc Sulfate [Zinc-220] 220 mg PO DAILY #4 capsule Home Medications: Medication Instructions Recorded Confirmed Type Acetaminophen [Tylenol Extra 1,000 mg PO DAILY 09/12/20 09/12/20 History Strength] Amlodipine [Norvasc] 10 mg PO DAILY 09/12/20 09/12/20 History Cholecalciferol (Vitamin D3) 1 cap PO DAILY 09/12/20 09/12/20 History [Vitamin D3] Irbesartan [Avapro] 150 mg PO DAILY 09/12/20 09/12/20 History Montelukast Sodium [Singulair] 10 mg PO DAILY 09/12/20 09/12/20 History Nystatin [Nystatin Ointment] 1 applic TOP BID PRN 09/12/20 09/12/20 History Pantoprazole [Protonix] 40 mg PO HS 09/12/20 09/12/20 History Raloxifene HCl [Evista] 60 mg PO HS 09/12/20 09/12/20 History Rosuvastatin [Crestor] 20 mg PO DAILY 09/12/20 09/12/20 History Vit C/E/Zn/Coppr/Lutein/Zeaxan 1 capsule PO BID 09/12/20 09/12/20 History [PreserVision Areds 2 Softgel] metFORMIN [Glucophage] 500 mg PO BID-WM 09/12/20 09/12/20 History Ascorbic Acid [Vitamin C] 1,000 mg PO DAILY #4 tablet 09/17/20 Rx Cefdinir 300 mg PO Q12HR #10 capsule 09/17/20 Rx Dexamethasone 6 mg PO DAILY #4 tablet 09/17/20 Rx Zinc Sulfate [Zinc-220] 220 mg PO DAILY #4 capsule 09/17/20 Rx Allergies: No Known Allergies Allergy (Verified 09/12/20 18:02) per pt - Discharge Instructions Activity:: Activity as Tolerated Nourishment:: Diabetic Diet, Heart Healthy Diet - Follow up Plan Referrals: MATT DAVIES [Primary Care Provider] - 3 Days (follow up in 3 days) Disposition: HOME Quality - Care Measures CORE MEASURES:: N/A
[2020-09-17 11:41] VITALS: BP 116/74; TEMP 98
--- NOTE | 2020-09-19 22:41 | PQF ---
CLINICAL DOCUMENTATION CLARIFICATION FORM: Dear : Delonte Fuchs Date / Time: 09/19/2020 Please exercise your independent, professional judgment in responding to the clarification form. Clinical indicators are provided on the bottom of this form for your review Please check appropriate box(es): [ x ] Sepsis due to: covid-19 pneumonia [ ] Severe sepsis with associated acute organ dysfunction: [ ] Acute Respiratory Failure [ ] Acute Kidney injury w/o ATN [ ] Acute Kidney Injury w ATN [ ] Encephalopathy (metabolic) (septic) [ ] Disseminated Intravascular Coagulopathy (DIC) [ ] Hepatic Failure [ ] Additional/Other: please specify: [ ] Septic Shock [ ] Localized infection without sepsis [ ] SIRS due to non-infectious process (please specify etiology) [ ] with organ dysfunction [ ] without organ dysfunction [ ] Other diagnosis (Please specify if any) [ ] Unable to determine Physician Signature: Date/Time: For continuity of documentation, please document condition throughout progress notes and discharge summary. Thank You To be completed by CDI/Coding staff for physician review: Present Clinical Indicators - Signs / Symptoms / Labs Results and Location in Medical Record [ ] Altered mental status, increased confusion, obtunded [x] Fever or hypothermia (<96.8 F/36 C or > 100.4 F/38C) Fever Emergency room visit on 09/12 [x] Respiratory rate >20/min, hypoxemia, and or hypercapnia RR-22 Vitals on 09/14 [ ] Heart Rate/Tachycardia (>90 bpm), SBP<100mmHg [x] He would like to had a CT scan & troponin to workup for Covid pneumonia & hypoxia & sepsis ED provider report on 09/12 [x] Acute hypoxic respiratory failure due to COVID 19 pneumonia H&P on 09/12 [ ] Acute organ dysfunction/failure [ ] Metabolic acidosis Lactic Acid >2mmol/L OR 36mg/dL, [ ] Oliguria , increase BUN/Cr, decreased GFR, elevated liver enzymes [ ] Coag abnormalities, thrombocytopenia plts <100k [ ] Shock-hypotension resistant to IV fluid boluses [ ] WBC count (>12,000/mm^4 or <4000/mm^3 or 70% neuts, 10% bands) [ ] Hyperglycemia in absence of diabetes mellitus [ ] Positive blood cultures Present Risk Factors Results and Location in Medical Record [ ] Infection/Bacteremia [x] Pneumonia, UTI, infected wound, gangrenous gall bladder Diabetes or Cancer Pneumonia, UTI - H&P on 09/12 [ ] Surgery / surgical instrumentation / trauma Ruptured/perforated bowel, ruptured appendix [ ] Immunosuppression [ ] Advancing Age Present Treatments Results and Location in Medical Record [ ] Initiation Sepsis Protocol ICU [ ] Daily CBC, blood/sputum/wound cx [ ] ID Consult [x] Rocephin 2gm Medication on 09/12 [x] Rocephin 1gm IV Medication from 09/13 to 09/16 [ ] Vasopressors, meds [ ] Consultants; ID, GI, Pulmonary, Hematology CDS/Deputy Commissioner Signature: AAS Phone #: Date/Time: 09/19/2020 This is a permanent part of the Medical Record [facility]
--- NOTE | 2020-09-22 12:27 | EKG ---
Test Reason : Blood Pressure : / mmHG Vent. Rate : 095 BPM Atrial Rate : 095 BPM P-R Int : 158 ms QRS Dur : 116 ms QT Int : 366 ms P-R-T Axes : 072 -48 115 degrees QTc Int : 459 ms Normal sinus rhythm Left anterior fascicular block Left ventricular hypertrophy with QRS widening Cannot rule out Septal infarct , age undetermined Abnormal ECG Confirmed by MICHELLE PIKE, JOE ([id number]), online editor TYRONE KOHLI ([id number]) on 09/22/2020 12:27:12 PM Referred By: Confirmed By:JOE MARTINEZ MD
== END 2020-09-17 11:45 | disposition home or self-care (01) | DRG 871 ==
LOC: ERS 10:26 → ERHOLD 12:37 → 2SW 17:34 → T4-B 09-14 15:30
PROVIDERS: ADMIT Internal Medicine; ATTEND Internal Medicine
PROC: 8E0ZXY6 Isolation (ICD-10-PCS; principal; 2020-09-12)
PROC: XW033E5 Introduction of Remdesivir Anti-infective into Peripheral Vein, Percutaneous Approach, New Technology Group 5 (ICD-10-PCS; 2020-09-13)
DX: A41.89 Other specified sepsis (principal); U07.1 COVID-19; J96.01 Acute respiratory failure with hypoxia; J12.89 Other viral pneumonia; N39.0 Urinary tract infection, site not specified; Z68.41 Body mass index [BMI] 40.0-44.9, adult; Z96.651 Presence of right artificial knee joint; M19.90 Unspecified osteoarthritis, unspecified site; B96.20 Unspecified Escherichia coli [E. coli] as the cause of diseases classified elsewhere; R07.89 Other chest pain; E66.01 Morbid (severe) obesity due to excess calories; E86.0 Dehydration; E11.22 Type 2 diabetes mellitus with diabetic chronic kidney disease; I12.9 Hypertensive chronic kidney disease with stage 1 through stage 4 chronic kidney disease, or unspecified chronic kidney disease; E78.5 Hyperlipidemia, unspecified; J30.2 Other seasonal allergic rhinitis; K21.9 Gastro-esophageal reflux disease without esophagitis; E87.6 Hypokalemia; M81.0 Age-related osteoporosis without current pathological fracture; R94.31 Abnormal electrocardiogram [ECG] [EKG]; Z90.710 Acquired absence of both cervix and uterus; Z79.899 Other long term (current) drug therapy; Z79.84 Long term (current) use of oral hypoglycemic drugs; Z90.49 Acquired absence of other specified parts of digestive tract; N18.2 Chronic kidney disease, stage 2 (mild)
CPT/HCPCS: 36415; 36416; 71045; 71275; 80053; 81003; 81015; 82728; 83605; 83615; 83735; 84100; 84484; 85025; 85379; 85610; 85730; 86140; 87040; 87077; 87086; 87186; 93005; 96365; 96366; 96368; 96375; J0456; J0696; J1100; J1650; J1815; J3490; J7050; Q9967